=== PATIENT | female | born 1985 | race American Indian/Alaskan Native ===

== ENCOUNTER 2019-06-07 17:07 | Emergency (ER) | payer OTHER ==
--- NOTE | 2019-06-07 18:35 | Event Note ---
ED Screening Note Date of service: 06/07/19 Time: 18:31 ED Screening Note: This is a 34 y.o. F. that presents to the ER with elevated BP from OBGYN. Patient states she took blood pressure medication around 1000 this morning. PMH of HTN Denies chest pain, palpitations, dizziness, visual changes, and headache. This initial assessment/diagnostic orders/clinical plan/treatment(s) is/are subject to change based on patients health status, clinical progression and re- assessment by fellow clinical providers in the ED. Further treatment and workup at subsequent clinical providers discretion. Patient/guardian urged not to elope from the ED as their condition may be serious if not clinically assessed and managed. Initial orders include:
[2019-06-07 19:55] VITALS: BP 161/107
--- NOTE | 2019-06-07 20:13 | Emergency Department Report ---
ED General Adult HPI - General Chief complaint: High BP Stated complaint: HBP/199/110 Time Seen by Provider: 06/07/19 18:31 Source: patient Mode of arrival: Ambulatory Limitations: No Limitations - History of Present Illness Initial comments: 34-year-old obese abdomen. [place] female with known history of hypertension was at her [employer] office today and found to have hypertension and was advised to come to the ED for further evaluation of this hypertension. She states that she takes hydrochlorothiazide and this usually normal, compliant, however the last few days. She says she's been off along with her medications for reasons unknown. She reports no fevers, chills, sweats. No chest pain or palpitations no shortness of breath, no headaches, no blurred vision. No presyncope or syncope. No nausea or vomiting. Radiation: non-radiation Severity scale (0 -10): 0 Consistency: constant Improves with: none Worsens with: none Treatments Prior to Arrival: none - Related Data Previous Rx's Medication Instructions Recorded Last Taken Type amLODIPine [Norvasc] 5 mg PO DAILY #20 tab 06/07/19 Unknown Rx Allergies Allergy/AdvReac Type Severity Reaction Status Date / Time No Known Allergies Allergy Unverified 06/07/19 17:19 ED Review of Systems ROS: Stated complaint: HBP/199/110 Other details as noted in HPI Constitutional: denies: chills, fever Eyes: denies: eye pain, eye discharge, vision change ENT: denies: ear pain, throat pain Respiratory: denies: cough, shortness of breath, wheezing Cardiovascular: denies: chest pain, palpitations Endocrine: no symptoms reported Gastrointestinal: denies: abdominal pain, nausea, diarrhea Genitourinary: denies: urgency, dysuria, discharge Musculoskeletal: denies: back pain, joint swelling, arthralgia Skin: denies: rash, lesions Neurological: denies: headache, weakness, paresthesias Psychiatric: denies: anxiety, depression Hematological/Lymphatic: denies: easy bleeding, easy bruising ED Past Medical Hx - Past Medical History Previous Medical History?: Yes Hx Hypertension: Yes - Surgical History Past Surgical History?: No - Social History Smoking Status: Never Smoker Substance Use Type: Alcohol - Medications Home Medications: Home Medications Medication Instructions Recorded Confirmed Last Taken Type amLODIPine [Norvasc] 5 mg PO DAILY #20 tab 06/07/19 Unknown Rx ED Physical Exam - General Limitations: No Limitations General appearance: alert, in no apparent distress - Head Head exam: Present: atraumatic, normocephalic - Eye Eye exam: Present: normal appearance - ENT ENT exam: Present: mucous membranes moist - Neck Neck exam: Present: normal inspection - Respiratory Respiratory exam: Present: normal lung sounds bilaterally. Absent: respiratory distress - Cardiovascular Cardiovascular Exam: Present: regular rate, normal rhythm. Absent: systolic murmur, diastolic murmur, rubs, gallop - GI/Abdominal GI/Abdominal exam: Present: soft, normal bowel sounds - Extremities Exam Extremities exam: Present: normal inspection - Back Exam Back exam: Present: normal inspection - Neurological Exam Neurological exam: Present: alert, oriented X3 - Psychiatric Psychiatric exam: Present: normal affect, normal mood - Skin Skin exam: Present: warm, dry, intact, normal color. Absent: rash ED Course Vital Signs 06/07/19 06/07/19 18:32 19:55 Temperature 98.1 F 98.4 F Pulse Rate 95 H 78 Respiratory 20 20 Rate Blood Pressure 158/115 Blood Pressure 161/107 [Right] O2 Sat by Pulse 98 100 Oximetry ED Medical Decision Making - Medical Decision Making There is 4-year-old female with no past medical history of hypertension, post partial compliance with her hydrochlorothiazide presents with elevated blood pressure in the guidance of her [employer]. She is not , but she reports having very high blood pressure and obesity. She told her to come get checked out. She's been asymptomatic symptomatic throughout this entire process. Blood pressure does remain to fluctuate between the low 170s to the upper 150s systolic with a diastolic, which is around 110-120 Critical care attestation.: If time is entered above; I have spent that time in minutes in the direct care of this critically ill patient, excluding procedure time. ED Disposition Clinical Impression: Hypertension Disposition: DC-01 TO HOME OR SELFCARE Is pt being admited?: No Does the pt Need Aspirin: No Condition: Stable Instructions: Hypertension (ED) Additional Instructions: Please keep appointment with your primary care provider next of 140, blood pressure reevaluation. In the meantime. Please incorporate the provided blood pressure medication to your current hydrochlorothiazide. Please be sure to be more compliant with her blood pressure medication as well. Prescriptions: amLODIPine [Norvasc] 5 mg PO DAILY #20 tab Referrals: [facility] [Provider Group] - 3-5 Days
== END 2019-06-07 20:23 | disposition home or self-care (01) ==
LOC: ED 17:07
DX: I10 Essential (primary) hypertension (principal)
CPT/HCPCS: 99282